=== PATIENT | female | born 1930 ===

== ENCOUNTER 2017-02-15 11:28 | Day surgery (SDC) | payer MEDICARE, BC ==
[~2017-02-15] VITALS: Ht 165.1 cm; Wt 63.5 kg
[2017-02-15] MEDS ORDERED: BUPIVACAINE/EPI PF 0.5% 10 ML VIAL ONE (13:26)
[2017-02-15] MEDS ORDERED: BACITRACIN 50,000 UNITS VIAL ONE (14:07)
[2017-02-15] MEDS ORDERED: CEFAZOLIN 50 ML IV ONE (15:28)
== END 2017-02-15 17:10 | disposition home or self-care (01) ==
LOC: DS 11:28 → EDSTATUS 13:30 → DS 17:10
PROVIDERS: ATTEND Orthopaedic Surgery Sports Medicine
DX: S52.021A Displaced fracture of olecranon process without intraarticular extension of right ulna, initial encounter for closed fracture (principal); W01.0XXA Fall on same level from slipping, tripping and stumbling without subsequent striking against object, initial encounter; Y93.89 Activity, other specified; Y92.098 Other place in other non-institutional residence as the place of occurrence of the external cause; Y99.9 Unspecified external cause status; I10 Essential (primary) hypertension; Z90.49 Acquired absence of other specified parts of digestive tract; I48.91 Unspecified atrial fibrillation
CPT/HCPCS: 24685; 73080; 76000; J0690; J3490 ×2; A4649; C1713